=== PATIENT | female | born 1995 | race African-American/Black ===

== ENCOUNTER 2016-06-04 14:17 | Emergency (ER) | payer OTHER, BC ==
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
[~2016-06-04 14:17] MED LIST: ALBUTEROL 0.5ML; ALBUTEROL17 GM INH; ALBUTEROL20 ml; BACTRIM DS TABL1 TA1 PO; CIPROFLOXACIN2.5 ML OP; CLARITIN10 M3 DOB; DIFLUCAN PO; IBUPROFEN; IMPLANON; IRON1 TAB PO; KEFLEX250 M1 PO; KEFLEX500 M1 PO; MACROBID100 MG PO; NAPROSYN500 MG PO; NO MEDICATIONS; NORFLEX100 M1; PREDNISONE PO; PRENATAL1 TA1 PO; PYRIDIUM PO; QVAR7.3 G1 IH; QVAR8.7 G1; ROBITUSSIN PE118 ML; TESSALON PERLE PO; VOLTAREN75 MG PO; ZYRTEC; ZYRTEC10 M2 PO
== END 2016-06-04 15:47 | disposition home or self-care (01) ==
LOC: SED 14:17
DX: S13.4XXA Sprain of ligaments of cervical spine, initial encounter (principal); S33.5XXA Sprain of ligaments of lumbar spine, initial encounter; V43.92XA Unspecified car occupant injured in collision with other type car in traffic accident, initial encounter; Y93.89 Activity, other specified; Y92.410 Unspecified street and highway as the place of occurrence of the external cause
CPT/HCPCS: 72040; 72100; 84703; 96372; 99284; J1885

== ENCOUNTER 2016-06-30 11:47 | Emergency (ER) | payer OTHER, BC ==
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
== END 2016-06-30 13:30 | disposition home or self-care (01) ==
LOC: SED 11:47
DX: S80.12XA Contusion of left lower leg, initial encounter (principal); J45.909 Unspecified asthma, uncomplicated; V49.40XA Driver injured in collision with unspecified motor vehicles in traffic accident, initial encounter; Y92.410 Unspecified street and highway as the place of occurrence of the external cause
CPT/HCPCS: 73590; 99283